=== PATIENT | male | born 1970 | race Caucasian/White ===

== ENCOUNTER 2021-09-14 08:18 | Emergency (ER) | payer BC ==
[~2021-09-14] VITALS: Ht 175.3 cm; Wt 68.0 kg
[2021-09-14] MEDS ORDERED: Valtrex1000 MG PO (09:10)
== END 2021-09-14 10:03 | disposition home or self-care (01) ==
LOC: ER 08:18
DX: B00.1 Herpesviral vesicular dermatitis (principal)
CPT/HCPCS: 99282